=== PATIENT | female | born 1955 | race Caucasian/White ===

== ENCOUNTER 2019-12-24 09:15 | Day surgery (SDC) | payer MEDICARE ==
[2019-12-22 13:32] LABS: HEMATOCRIT 43.8 % (36.0-48.0); HEMOGLOBIN 15.2 g/dL (12-16); MCH 33.3 pg (26.0-34.0); MCHC 34.7 g/dL (31.0-37.0); MCV 95.8 fL (80.0-100.0); MEAN PLATELET VOLUME 9.3 fL (7.4-10.4); RBC 4.57 10x6/uL (4.00-5.40); RDW 12.3 % (11.5-14.5); WBC 6.6 10x3/uL (4.8-10.8)
[~2019-12-24] VITALS: Ht 160 cm; Wt 76.2 kg
[~2019-12-24 09:15] MED LIST: LISINOPRIL40 MG PO
[2019-12-24 09:41] VITALS: BP 132/76; Ht 160 cm; Wt 76.2 kg
[2019-12-24] MEDS ORDERED: PERCOCET 5-3251 TAB PO (11:11)
--- NOTE | 2019-12-24 12:30 | NUR ---
1215-REC'D FROM RR. AWAKE AND ALERT.VSS. REPORTS DISCOMFORT 2/10 TO ABD/INCISIONAL SITES. STERI STRIPS TO 4 AREAS CDI. TOLERATED ICE CHIPS IN RR.
--- NOTE | 2019-12-24 12:31 | NUR ---
1220-ICE WATER TO ROOM. REVIEWED DISCHARGE INSTRUCTIONS WITH PT AND FAMILY. VERBALIZED UNDERSTANDING. CL IN EASY REACH. FAMILY AT BEDSIDE.
--- NOTE | 2019-12-24 12:49 | NUR ---
1245-FULLL LIQUID TRAY TO ROOM. VSS. NO DISTRESS. CONTINUE TO REPORT DISCOMFORT / TO ABD. CL IN EASY REACH. FAMILY AT BEDSIDE.
--- NOTE | 2019-12-24 14:02 | NUR ---
1330-TOLERATED TRAY. VSS. CONTINUE TO HAVE DISCOMFORT 2/10. UNABLE TO VOID AT THIS TIME. CL IN EASY REACH. SPOUSE AT BEDSIDE.
--- NOTE | 2019-12-24 14:03 | NUR ---
1340-ASSISTED TO RESTROOM. ABLE TO VOID WITHOUT COMPLICATIONS. REMOVED IV WITH CATH INTACT FROM RIGHT HAND,DISPOSED INTO SHARPS.COVERED SITE WITH GUAZE,SECURED WITH MEDIPORE.
--- NOTE | 2019-12-24 14:05 | NUR ---
1350-PT DRESSED. STERI STRIPS TO ABD CDI. VSS.DENIES PAIN. REVIEWED POST OPERATIVE INSTRUCTIONS AND FOLLOW UP APPOOINTMENT.VERBALIZED UNDERSTANDING
--- NOTE | 2019-12-24 14:06 | NUR ---
1355-ESCORTED OUT VIA W/C BY STAFF WITH SPOUSE AWAITING TO DRIVE HOME. PLEASANT TO CARE FOR.
== END 2019-12-24 13:55 | disposition home or self-care (01) ==
LOC: D.OPS 09:15 → D.PAN 09:30 → D.OPS 09:30
PROVIDERS: Anesthesiology; ATTEND Surgery
DX: K80.80 Other cholelithiasis without obstruction (principal); R10.31 Right lower quadrant pain; K80.20 Calculus of gallbladder without cholecystitis without obstruction; N39.0 Urinary tract infection, site not specified